=== PATIENT | male | born 1990 | race Caucasian/White ===

== ENCOUNTER 2019-06-09 23:27 | Emergency (ER) | payer BC, SELFPAY ==
[2019-06-09 23:31] VITALS: BP 181/118; PULSE 85; RESP 16; TEMP 36.7; O2SAT 97; BMI 40.1
--- NOTE | 2019-06-09 23:34 | ED_ITS ---
Entered by Felipa Figueredo, acting as scribe for Jun 09, 2019 23:27 HPI - Nausea/Vomiting/Diarrhea General: Chief complaint: General Medical Stated complaint: diarrhea Time Seen by Provider: 06/09/19 23:28 Source: patient Mode of arrival: ambulatory Limitations: no limitations History of Present Illness: HPI Narrative: 29 yr old male presents to the ED with diarrhea. The onset of this complain was this morning. Pt states that he called into work this morning and his employer is requiring him to have a doctors note before returning to work due to the coronavirus. According to the pt his diarrhea cleared up around 5pm. Pt states that his work which is [employer] has a new policy that they have to get cleared for any complaint if called in before they can return to work. MD elicited complaint: diarrhea (started this morning and ended at 5pm this evening ) Onset (ago): day(s) (today) Description of diarrhea: other (resolved) Associated nausea: No Associated abdominal pain: No Location of pain: None Pain consistency: now resolved Severity: mild Associated symtoms: Reports no associated symptoms; Denies chest pain, dysuria, headache(s) or nausea Review of Systems General: Reports: other (negative unless marked) Const: Denies: fever, chills, body aches or change in appetite Eyes: Denies: blurry vision or eye discomfort ENMT: Denies: throat pain or dental pain Card: Denies: chest pain Resp: Denies: shortness of breath GI: Reports: diarrhea; Denies: nausea : Denies: painful urination Musc: Denies: neck pain or back pain Skin/Breast: Denies: rash Neuro: Denies: headache Psych: Denies: depression Randal/Lymph: Denies: easy bruising All/Imm: Denies: hives PFS ED PFSH: Social History Smoking and tobacco status: never smoked Physical Exam Const: COMMON NORMALS: no apparent distress, oriented x3 and healthy appearing HENMT: COMMON NORMALS: normocephalic and head/scalp atraumatic HEAD & SCALP: normocephalic and atraumatic Eye: COMMON NORMALS: PERRL and EOMs intact bilaterally PUPIL: Yes PERRL Neck/C-Spine: COMMON NORMALS: full ROM and supple Chest: COMMONS NORMALS: inspection of chest normal and palpation of chest normal Resp: COMMON NORMALS: normal respiratory effort, no retractions, no use of accessory muscles and clear to auscultation bilaterally AUSCULTATION: clear to auscultation bilaterally Cardio: COMMON NORMALS: regular rate, regular rhythm and no murmurs RATE: regular rate RHYTHM: regular rhythm GI: COMMON NORMALS: normal to inspection, nondistended, normoactive bowel sounds, soft to palpation, non-tender and no masses PALPATION: Yes soft Extremity: COMMON NORMALS: normal to inspection and full ROM Neuro: COMMON NORMALS: oriented x3, moves all extremities and no focal motor deficits Psych: COMMON NORMALS: mental status grossly normal, thought process normal and cooperative THOUGHT PROCESS: normal thought process Skin: COMMON NORMALS: no rashes or lesions noted and no wounds GENERAL SKIN EXAM: no rashes or lesions noted Course Vital Signs: Vital signs: Vital Signs Temperature 98.1 F 06/09/19 23:31 Pulse Rate 85 06/09/19 23:31 Respiratory Rate 16 06/09/19 23:31 Blood Pressure 181/118 06/09/19 23:31 Pulse Oximetry 97 06/09/19 23:31 MDM - Nausea/Vomiting/Diarrhea MDM Narrative: Medical decision making narrative: Sina presents with diarrhea that is since resolved. He states he is here for return to work note as his job is requiring it. Patient currently has no symptoms he is stable for discharge. He is cleared to return to work at this time. Discharge Plan Discharge Patient Disposition: Home, Self-Care Clinical Impression: Diarrhea Qualifiers: Diarrhea type: unspecified type Qualified Code(s): R19.7 - Diarrhea, unspecified Condition: Stable Discharge Orders: Discharge Order (Routine); Ordered 06/09/19 Ordered By: Sage Pantoja Referrals: Sean Dennis MD [Family Provider] - Discharge Diet: Advance as tolerated Discharge Activity: Resume usual activity Patient Instructions: Acute Diarrhea (ED) Stand Alone Forms: Work/School Release Coding Level of Care Code ED Field Traffic Investigator for Chg Fwd The documentation recorded by the Terell spear Stephanie Lyn, accurately reflects the service I personally performed and the decisions made by Kit batista Korby, MD Jun 09, 2019 23:27
--- NOTE | 2019-06-09 23:44 | PC.NURSE ---
Received patient to er with complaint that he went drinking last night and had gi issues this am which are now better but he need s work note.
== END 2019-06-09 23:52 | disposition home or self-care (01) ==
PROVIDERS: Emergency Provider Emergency Medicine; Family Provider Family Medicine
DX: R19.7 Diarrhea, unspecified (principal)
CPT/HCPCS: 12345; 99281

== ENCOUNTER → 2020-01-18 11:50 | Outpatient (BNVA) | payer BC, SELFPAY | PROVIDERS: Family Provider Family Medicine; Visit Provider Nurse Practitioner Family | DX: Z11.59 Encounter for screening for other viral diseases (principal) | CPT/HCPCS: 87635 ==